=== PATIENT | male | born 1965 | race Two or more races ===

== ENCOUNTER 2019-06-27 08:22 | Observation (INO) | payer OTHER ==
--- NOTE | 2019-06-27 08:37 | PDOC ---
History of Present Illness - General Stated Complaint: Lightheaded Time Seen by Provider: 06/27/19 08:37 - History of Present Illness Initial Comments: 06/27/19 10:38 54 year old man with a history of headaches, HTN, HLD, prior spine surgery who presents with 5 days of vertigo and dizziness. He was evaluated in his PCP 5 days ago. The patient reports that he came to the ED today because he felt nauseous this morning. The headache was slow onset and worse with light. He has no other complaints ROS GENERAL/CONSTITUTIONAL: No fever or chills. No weakness. HEAD, EYES, EARS, NOSE AND THROAT: No change in vision. No ear pain or discharge. CARDIOVASCULAR: No chest pain or shortness of breath RESPIRATORY: No cough, wheezing, or hemoptysis. GASTROINTESTINAL: No nausea, vomiting, diarrhea or constipation. GENITOURINARY: No dysuria, frequency, or change in urination. MUSCULOSKELETAL: No joint or muscle swelling or pain. No neck or back pain. SKIN: No rash NEUROLOGIC: + headache, vertigo, No loss of consciousness, or change in strength /sensation. PE GENERAL: Awake, alert, and fully oriented, in no acute distress HEAD: No signs of trauma, normocephalic, atraumatic EYES: PERRLA, EOMI, sclera anicteric, conjunctiva clear ENT: oropharynx clear without exudates. Moist mucosa NECK: Normal ROM, supple LUNGS: No distress, speaks full sentences, clear to auscultation bilaterally HEART: Regular rate and rhythm, normal S1 and S2, no murmurs, rubs or gallops, peripheral pulses normal and equal bilaterally. ABDOMEN: Soft, nontender No guarding, no rebound. No masses EXTREMITIES : Normal inspection, Normal range of motion, no edema. No clubbing or cyanosis. NEUROLOGICAL: Cranial nerves II through XII grossly intact. Normal speech, no focal sensorimotor deficits SKIN: Warm, Dry, normal turgor, no rashes or lesions noted MDM DDX including but not limited to: migraine bppv vs meiniere vs labrynthitis ED Course: will treat with headache cocktail and reassess patient reassessed and reports resolution of headache but persistent vertigo will dose mecliizine on reassessment patient has improvement of vertigo and headache but difficulty ambulating notable unsteadiness and slighlty wide based gait neurology paged plan for inpatient admission and mri to rule out cerebellar stroke Tressa Peterson, PGY2 Emergency Medicine Past History - Past Medical History Allergies/Adverse Reactions: Allergies Allergy/AdvReac Type Severity Reaction Status Date / Time No Known Allergies Allergy Verified 06/27/19 08:49 Home Medications: Ambulatory Orders Chlorthalidone 12.5 mg PO DAILY 06/27/19 ED Treatment Course - LABORATORY CBC & Chemistry Diagram: 06/28/19 06:07 06/28/19 06:07 Discharge - Discharge Information Problems reviewed: Yes Clinical Impression/Diagnosis: Vertigo Condition: Stable - Admission Yes - Follow up/Referral - Patient Discharge Instructions - Post Discharge Activity
[2019-06-27] MEDS ORDERED: SODIUM CHLORIDE 1,000 ML IV SCH (08:45)
--- NOTE | 2019-06-27 09:07 | PDOC ---
Attending Attestation - Resident Resident Name: Tressa Peterson - HPI HPI: 06/27/19 12:50 Pt presents to the ED complaining of headache and vertigo. THe headache is similar to his typical headache, but the vertigo is not. He has never experienced an episode of vertigo before. He is having difficulty ambulating. - Physicial Exam PE: 06/27/19 12:52 Agree with resident exam. PAtient is alert and oriented and in no acute distress. Lungs are clear. CV: Regular rate and rhythm without murmurs. Abdomen: soft, non tender, non distended without guarding or rebound. Neuro: alert and oriented x 3, CN grossly intact. No nystagmus. - Medical Decision Making 06/27/19 12:53 Pt presents to the ED complaining of vertigo and mild headache. Headache resolved after IV reglan and tylenol, and patient reports feeling less vertigo after meclizine, but remains unable to ambulate. Will admit to medicine and check MRI to rule out posterior CVA.
[2019-06-27 09:29] LABS: BASO % 0.6 % (0-2.0); EOS % 1.1 % (0-4.5); HEMOGLOBIN 17.8 GM/dL (11.7-16.9); MCH 30.4 pg (25.7-33.7); MCHC 34.3 g/dl (32.0-35.9); MEAN CELL VOLUME 88.5 fl (80-96); MEAN PLT VOLUME 8.6 fl (7.5-11.1); MONO % 6.9 % (3.8-10.2); NEUT % 76.4 % (42.8-82.8); PLATELET COUNT 233 K/MM3 (134-434); RBC 5.88 M/mm3 (4.00-5.60); RDW 13.3 % (11.9-15.9); WHITE BLOOD COUNT 9.7 K/mm3 (4.0-10.0)
[2019-06-27 09:30] LABS: URINE APPEARANCE CLEAR; URINE BILIRUBIN NEGATIVE (NEGATIVE); URINE COLOR YELLOW; URINE GLUCOSE (UA) NEGATIVE (NEGATIVE); URINE KETONE NEGATIVE (NEGATIVE); URINE LEUK ESTERASE NEGATIVE (NEGATIVE); URINE NITRITE NEGATIVE (NEGATIVE); URINE PROTEIN NEGATIVE (NEGATIVE); URINE UROBILINOGEN 0.2 mg/dL (0.2-1.0)
[2019-06-27] MEDS ORDERED: METOCLOPRAMIDE HCL INJECTION 10 MG/2 ML VIAL ONE (09:35)
[2019-06-27] MEDS ORDERED: METOCLOPRAMIDE HCL INJECTION 10 MG/2 ML VIAL IVPUSH ONE (09:41)
[2019-06-27] MEDS ORDERED: ACETAMINOPHEN 1000 MG/100 ML VIAL (NON FORMULARY) IVPB ONE (09:41)
[2019-06-27 10:05] LABS: ALBUMIN 3.9 g/dl (3.4-5.0); BILIRUBIN,TOTAL 0.5 mg/dL (0.2-1); BLOOD UREA NITROGEN 19.8 mg/dL (7-18); CALCIUM 8.9 mg/dL (8.5-10.1); POTASSIUM 4.1 mmol/L (3.5-5.1); TOT PROT 7.4 g/dl (6.4-8.2)
[2019-06-27] MEDS ORDERED: ACETAMINOPHEN INJECTION 100 ML IVPB ONE (10:05)
[2019-06-27] MEDS ORDERED: MECLIZINE HCL 25 MG TABLET (FP) PO ONE ×2 (11:19→12:39)
[2019-06-27] MEDS ORDERED: MECLIZINE HCL 25 MG TABLET (FP) ONE ×2 (12:12→13:13)
[2019-06-27] MEDS ORDERED: diazePAM 5 MG TABLET PO ONE (12:39)
[2019-06-27] MEDS ORDERED: diazePAM 5 MG TABLET ONE (13:13)
--- NOTE | 2019-06-27 13:22 | EKG ---
Test Reason : Blood Pressure : / mmHG Vent. Rate : 073 BPM Atrial Rate : 073 BPM P-R Int : 168 ms QRS Dur : 088 ms QT Int : 394 ms P-R-T Axes : 033 034 047 degrees QTc Int : 434 ms POOR DATA QUALITY, INTERPRETATION MAY BE ADVERSELY AFFECTED NORMAL SINUS RHYTHM NORMAL ECG NO PREVIOUS ECGS AVAILABLE Confirmed by MARJORIE GEORGE MD ([id number]) on 06/27/2019 1:21:56 PM Referred By: Confirmed By:MARJORIE GEORGE MD
--- NOTE | 2019-06-27 13:33 | HP ---
<Dharmesh Fernandez - Last Filed: 06/27/19 17:30> CHIEF COMPLAINT: PCP: HISTORY OF PRESENT ILLNESS: 54yo M with h/o HTN who presents today with ~3 days of vertigo and headache. Pt reports he has been on chlorthalidone for at least 3 months without problem. He was in his usual state of health Sunday and during his day sunday pt noticed he developed sudden vertigo that lasted hours. Pt reported his vertiginous symptoms would be exacerbated by movements and alleviated by staying still, however since then he has noticed the correlation being slightly less strict to those factors. Pt today developed a severe bilateral headache and decided to be seen in the ER. Pt reports he took his medication today as directed. Pt received Meclizine and Tylenol during his ER visit and reports slight alleviation of his headache and continued vertigo. Pt denies any trauma, previously have vertigo. Pt denies any hearing loss, fullness of ear, or ear pain. Denies any weakness, numbness, tingling. Pt had not travelled recently or scuba dived. Pt reports he may have had a slight cough 1-2 weeks prior, but is not confident in his timeline. Denies any CP/palpitations, shortness of breath, abdominal pain, back pain. Pt also requests call to his work/work note because he just started and does not want to lose his job. Work number: [employer]. ER course was notable for: (1) (2) (3) Recent Travel: PAST MEDICAL HISTORY: HTN PAST SURGICAL HISTORY: Lumbar spinal fusion about 4 years prior Social History: Smoking: Denies Alcohol: Denies Drugs: Denies Lives with and has 3 kids who are involved in medical field in other countries Allergies No Known Allergies Allergy (Verified 06/27/19 08:49) HOME MEDICATIONS: Home Medications Medication Instructions Recorded Chlorthalidone 12.5 mg PO DAILY 06/27/19 REVIEW OF SYSTEMS As per [facility] PHYSICAL EXAMINATION Vital Signs - 24 hr 06/27/19 06/27/19 06/27/19 08:30 09:20 13:19 Temperature 97.7 F 98 F Pulse Rate 75 Pulse Rate [ 73 77 Right Radial] Respiratory 18 18 18 Rate Blood Pressure 140/102 H Blood Pressure 153/106 H 145/101 H [Left Arm] O2 Sat by Pulse 100 100 100 Oximetry (%) GENERAL: Awake, alert, and fully oriented, in no acute distress. HEENT: NC/AT, EOMI without nystagmus, sclera anicteric, no scleral injections, BELÉN, MMM NECK: [place]-hallpike positive with subjective claims, but no notable nystagmus, no JVD LUNGS: CTA bilaterally. No wheezes, and no crackles. No accessory muscle use. HEART: RRR, normal S1 and S2 without murmur, rub or gallop. ABDOMEN: Soft, nontender, not distended, normoactive bowel sounds, no guarding EXTREMITIES: 2+ pulses, warm, well-perfused. No calf tenderness. No peripheral edema. NEUROLOGICAL: car unloader II-XII intact. Strength 5/5 throughout. sensation intact. no dysmetria, no dysdiadocokinesia, Normal speech. unsteady gait, with hesitation in step. Vertigo persists with eyes closed PSYCHIATRIC: Cooperative. Good eye contact. Appropriate mood and affect. SKIN: Warm, dry, normal turgor, no rashes or lesions noted Laboratory Results - last 24 hr 06/27/19 06/27/19 06/27/19 09:10 09:10 09:10 WBC 9.7 RBC 5.88 H Hgb 17.8 H Hct 52.0 H MCV 88.5 MCH 30.4 MCHC 34.3 RDW 13.3 Plt Count 233 MPV 8.6 Absolute Neuts (auto) 7.4 Neutrophils % 76.4 Lymphocytes % 15.0 Monocytes % 6.9 Eosinophils % 1.1 Basophils % 0.6 Nucleated RBC % 0 Sodium 136 Potassium 4.1 Chloride 102 Carbon Dioxide 26 Anion Gap 8 BUN 19.8 H Creatinine 1.0 Est GFR (CKD-EPI)AfAm 97.77 Est GFR (CKD-EPI)NonAf 84.35 Random Glucose 116 H Calcium 8.9 Total Bilirubin 0.5 AST 32 ALT 77 H Alkaline Phosphatase 103 Troponin I < 0.02 Total Protein 7.4 Albumin 3.9 TSH 0.65 Urine Color Urine Appearance Urine pH Ur Specific [place] Urine Protein Urine Glucose (UA) Urine Ketones Urine Blood Urine Nitrite Urine Bilirubin Urine Urobilinogen Ur Leukocyte Esterase 06/27/19 09:10 WBC RBC Hgb Hct MCV MCH MCHC RDW Plt Count MPV Absolute Neuts (auto) Neutrophils % Lymphocytes % Monocytes % Eosinophils % Basophils % Nucleated RBC % Sodium Potassium Chloride Carbon Dioxide Anion Gap BUN Creatinine Est GFR (CKD-EPI)AfAm Est GFR (CKD-EPI)NonAf Random Glucose Calcium Total Bilirubin AST ALT Alkaline Phosphatase Troponin I Total Protein Albumin TSH Urine Color Yellow Urine Appearance Clear Urine pH 7.0 Ur Specific [place] 1.019 Urine Protein Negative Urine Glucose (UA) Negative Urine Ketones Negative Urine Blood Negative Urine Nitrite Negative Urine Bilirubin Negative Urine Urobilinogen 0.2 Ur Leukocyte Esterase Negative ASSESSMENT/PLAN: New onset Peripheral vertigo Hypertensive Emergency Polycythemia Likely peripheral vertigo compared to central based on history --[place]-hallpike positive --No hearing loss (ruled out labrynthitis vs. [place]) --Longer duration suggestive of neuronitis instead of BPPV, however no preceeding illness --HTN emergency likely causing vertiginous symptoms vs. benign vertiginous pathology --Lopressor 5mg IVP once for HTN emergency relief --Will switch from Chlorthalidone 12.5mg qdaily to Norvasc in case of low normal Na causing his vertigo --Antivert PRN for symptomatic relief in interim --Head CT to r/o any cerebellar pathology --Polycythemia in a nonsmoker with poorly controlled HTN: would suggest sleep study to r/o DERICK which can be done on outpatient basis --Fall risk --Monitor BP and HR FEN: Fluids: not indicated currently Electrolyte abnormalities: None currently; monitor Na Nutrition: Low-sodium diet PPx DVT - SCDs only Dispo: Observation for interval relief of vertigo and ability to walk Dharmesh Fernandez DO - PGY-3 ATTENDING PHYSICIAN STATEMENT I saw and evaluated the patient. I reviewed the resident's note and discussed the case with the resident. I agree with the resident's findings and plan as documented. SUBJECTIVE: OBJECTIVE: ASSESSMENT AND PLAN: <Piter [place]mond - Last Filed: 06/28/19 10:49> Seen and examined; agree with above history and physical as documented aside from as supplemented by myself. Independently verified all gold historical and PE findings as well as lab and imaging findings. Discussed at length with resident. Briefly, he presents for vertiginous symptoms that lead to difficulty ambulating due to dizziness. Thesehappened several days ago and have been waxing and waning. No hx CVA in the past, etc. He has hx HTN. No FND on exam and slightly improved with meclizine but no complete resolution. Given additional dose of meclizine and vallium and bringing to the floor to monitor. No tinnitus, some elements of rotational perception. Did not present as a stroke, persay, but will at least check an MRI to r/o a subacute cerebellar process. I also ordered carotid dopplers to r/o any underlying vertebral A. stenosis or CA stenosis that could contribute to this symptomatology. Neurology has been consulted. Will stay due to the degree of symptoms impacting his functional capacity. 10 sys ROS done and negative aside from HPI PMH, PSH, FH, SH reviewed No FH AVM or sudden CV Medications reviewed, allergies reviewed NAD, AAO, resting in bed Some L-sided nystag. 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 Visit type - Emergency Visit Emergency Visit: Yes ED Registration Date: 06/27/19 Care time: The patient presented to the Emergency Department on the above date and was hospitalized for further evaluation of their emergent condition. - New Patient This patient is new to me today: Yes Date on this admission: 06/27/19 - Critical Care Critical Care patient: No ATTENDING PHYSICIAN STATEMENT I saw and evaluated the patient. I reviewed the resident's note and discussed the case with the resident. I agree with the resident's findings and plan as documented. SUBJECTIVE: OBJECTIVE: ASSESSMENT AND PLAN:
[2019-06-27] MEDS ORDERED: MECLIZINE HCL 12.5 MG TABLET PO PRN (13:34)
[2019-06-27] MEDS ORDERED: METOPROLOL TARTRATE 5 MG/5 ML VIAL IVPUSH ONE (13:34)
[2019-06-27 16:53] VITALS: BMI 28.5
[2019-06-28 06:57] LABS: HEMATOCRIT 52.2 % (35.4-49); HEMOGLOBIN 18.2 GM/dL (11.7-16.9); MCH 30.7 pg (25.7-33.7); MCHC 34.9 g/dl (32.0-35.9); MEAN CELL VOLUME 87.9 fl (80-96); MEAN PLT VOLUME 8.8 fl (7.5-11.1); PLATELET COUNT 246 K/MM3 (134-434); RBC 5.94 M/mm3 (4.00-5.60); RDW 12.9 % (11.9-15.9); WHITE BLOOD COUNT 8.9 K/mm3 (4.0-10.0)
[2019-06-28 08:13] LABS: BLOOD UREA NITROGEN 22.5 mg/dL (7-18); CALCIUM 9.2 mg/dL (8.5-10.1); MAGNESIUM 2.4 mg/dL (1.8-2.4); POTASSIUM 3.6 mmol/L (3.5-5.1)
--- NOTE | 2019-06-28 08:47 | PN ---
Physical Exam: SUBJECTIVE: Patient seen and examined He is better and less dizziness his ct head is normal today and awaiting neuro consult OBJECTIVE: Vital Signs Period Temp Pulse Resp BP Sys/[place]umbo Pulse Ox Last 24 Hr 97.9 F-98.6 F 70-85 17-18 118-153/75-106 98-100 GENERAL: The patient is awake, alert, and fully oriented, in no acute distress. HEAD: Normal with no signs of trauma. EYES: PERRL, extraocular movements intact, sclera anicteric, conjunctiva clear. No ptosis. ENT: Ears normal, nares patent, oropharynx clear without exudates, moist mucous membranes. NECK: Trachea midline, full range of motion, supple. LUNGS: Breath sounds equal, clear to auscultation bilaterally, no wheezes, no crackles, no accessory muscle use. HEART: Regular rate and rhythm, S1, S2 without murmur, rub or gallop. ABDOMEN: Soft, nontender, nondistended, normoactive bowel sounds, no guarding, no rebound, no hepatosplenomegaly, no masses. EXTREMITIES: 2+ pulses, warm, well-perfused, no edema. NEUROLOGICAL: Cranial nerves II through XII grossly intact. Normal speech, gait not observed. PSYCH: Normal mood, normal affect. SKIN: Warm, dry, normal turgor, no rashes or lesions noted Laboratory Results - last 24 hr 06/27/19 06/27/19 06/27/19 09:10 09:10 09:10 WBC 9.7 RBC 5.88 H Hgb 17.8 H Hct 52.0 H MCV 88.5 MCH 30.4 MCHC 34.3 RDW 13.3 Plt Count 233 MPV 8.6 Absolute Neuts (auto) 7.4 Neutrophils % 76.4 Lymphocytes % 15.0 Monocytes % 6.9 Eosinophils % 1.1 Basophils % 0.6 Nucleated RBC % 0 Sodium 136 Potassium 4.1 Chloride 102 Carbon Dioxide 26 Anion Gap 8 BUN 19.8 H Creatinine 1.0 Est GFR (CKD-EPI)AfAm 97.77 Est GFR (CKD-EPI)NonAf 84.35 Random Glucose 116 H Calcium 8.9 Magnesium Total Bilirubin 0.5 AST 32 ALT 77 H Alkaline Phosphatase 103 Troponin I < 0.02 Total Protein 7.4 Albumin 3.9 TSH 0.65 Urine Color Urine Appearance Urine pH Ur Specific [place] Urine Protein Urine Glucose (UA) Urine Ketones Urine Blood Urine Nitrite Urine Bilirubin Urine Urobilinogen Ur Leukocyte Esterase 06/27/19 06/28/19 06/28/19 09:10 06:07 06:07 WBC 8.9 RBC 5.94 H Hgb 18.2 H Hct 52.2 H MCV 87.9 MCH 30.7 MCHC 34.9 RDW 12.9 Plt Count 246 MPV 8.8 Absolute Neuts (auto) Neutrophils % Lymphocytes % Monocytes % Eosinophils % Basophils % Nucleated RBC % Sodium 138 Potassium 3.6 Chloride 100 Carbon Dioxide 27 Anion Gap 11 BUN 22.5 H Creatinine 1.0 Est GFR (CKD-EPI)AfAm 97.77 Est GFR (CKD-EPI)NonAf 84.35 Random Glucose 103 Calcium 9.2 Magnesium 2.4 Total Bilirubin AST ALT Alkaline Phosphatase Troponin I Total Protein Albumin TSH Urine Color Yellow Urine Appearance Clear Urine pH 7.0 Ur Specific [place] 1.019 Urine Protein Negative Urine Glucose (UA) Negative Urine Ketones Negative Urine Blood Negative Urine Nitrite Negative Urine Bilirubin Negative Urine Urobilinogen 0.2 Ur Leukocyte Esterase Negative Active Medications Generic Name Dose Route Start Last Admin Trade Name Freq PRN Reason Stop Dose Admin Amlodipine Besylate 10 mg 06/28/19 14:30 Norvasc - PO DAILY QUIN Meclizine HCl 12.5 mg 06/27/19 13:34 Antivert - PO Q6HPO PRN VERTIGO ASSESSMENT/PLAN: dizziness r/o cause probably due to peripheral vertigo H/o high hemoglobin and according to him he has h/o blood draw for polycythemia called hematology eval and repeat labs neuro moise is pending htn stable advised to continue the amlodipine Visit type - Emergency Visit Emergency Visit: Yes ED Registration Date: 06/27/19 Care time: The patient presented to the Emergency Department on the above date and was hospitalized for further evaluation of their emergent condition. - New Patient This patient is new to me today: Yes Date on this admission: 06/28/19 - Critical Care Critical Care patient: No - Discharge Referral Referred to [facility] Med P.C.: No
[2019-06-28] MEDS ORDERED: CHLORTHALIDONE 25 MG TABLET PO SCH (10:00)
[2019-06-28] MEDS ORDERED: amLODIPine BESYLATE 10 MG TABLET (FP) PO SCH (10:00)
[2019-06-28] MEDS ORDERED: MECLIZINE HCL 25 MG TABLET (FP) PO PRN (10:36)
[2019-06-28] MEDS ORDERED: PT OWN MED DRAWER 7, Y5N ONE (10:40)
--- NOTE | 2019-06-28 10:48 | CONSULT ---
Consult Consult Specialty:: Hematology Referred by:: Medicine Reason for Consultation:: Erythrocytosis - History of Present Illness Chief Complaint: Vertigo History of Present Illness: Several days vertigo, and headache, and found to have elevated Hct >50%. Non contrast CT negative. Concern for P vera. Patient informs me he used to undergo phlebotomy in his home country. Unaware of a diagnosis. No history of thromboembolic events. - History Source History Provided By: Patient, Medical Record Limitations to Obtaining History: No Limitations - Alcohol/Substance Use Hx Alcohol Use: No - Smoking History Smoking history: Never smoked Have you smoked in the past 12 months: No Home Medications - Allergies Allergies/Adverse Reactions: Allergies Allergy/AdvReac Type Severity Reaction Status Date / Time No Known Allergies Allergy Verified 06/27/19 08:49 - Home Medications Home Medications: Ambulatory Orders Amlodipine Besylate [Norvasc -] 10 mg PO DAILY #30 tablet 06/29/19 Chlorthalidone 12.5 mg PO DAILY #30 tablet 06/29/19 Meclizine HCl 12.5 mg PO TID PRN 30 Days #30 tablet 06/29/19 Physical Exam Vital Signs: Vital Signs Temperature 98.0 F 06/28/19 06:00 Pulse Rate 85 06/28/19 06:00 Respiratory Rate 18 06/28/19 06:00 Blood Pressure 124/82 06/28/19 06:00 O2 Sat by Pulse Oximetry (%) 98 06/28/19 05:00 Constitutional: Yes: Well Nourished Eyes: Yes: WNL Neck: Yes: Supple, Trachea Midline Cardiovascular: Yes: Regular Rate and Rhythm, S1, S2. No: Gallop, Murmur Respiratory: Yes: Regular, CTA Bilaterally Gastrointestinal: Yes: Normal Bowel Sounds, Soft. No: Splenomegaly Musculoskeletal: No: Joint Swelling Extremities: Yes: WNL Edema: No Neurological: Yes: Alert, Oriented, Cran Nerves II-XII Intact. No: Loss of Sensation, Numbness, Pre-Existing Deficit ...Motor Strength: WNL Psychiatric: Yes: Alert, Oriented Labs: CBC, BMP 06/28/19 06:07 06/28/19 06:07 Assessment/Plan Mild erythrocytosis, without apparent etiology. Unclear why he underwent phlebotomy in the past, but raises concern of a possible confirmed history of P vera. Check epo level and screen for JAK2 [id number] mutation. In interim can start ASA 81mgs/day. If patient to be discharged should follow up with Kathleen Deng/Brianna as outpatient.
--- NOTE | 2019-06-28 11:59 | CONSULT ---
Consult - text type - Consultation Consultation Note: Neurology HISTORY OF PRESENT ILLNESS: 54yo M with h/o HTN who presented on day of admission with ~3 days of vertigo and headache. Pt reported he has been on chlorthalidone for at least 3 months without problem. He was in his usual state of health Sunday and on Sunday, pt noticed he developed sudden vertigo that lasted hours. Pt reported his vertiginous symptoms would be exacerbated by movements and alleviated by staying still, however since then he has noticed the correlation being slightly less strict to those factors. Pt on day of admission, developed a severe bilateral headache and decided to be seen in the ER. Pt reports he took his medication on day admission as directed. Pt received Meclizine and Tylenol during his ER visit and reports slight alleviation of his headache and continued vertigo. Pt denies any trauma, previously have vertigo. Pt denies any hearing loss, fullness of ear, or ear pain. Denies any weakness, numbness, tingling. Pt had not travelled recently or scuba dived. Pt reports he may have had a slight cough 1-2 weeks prior, but is not confident in his timeline. Denies any CP/palpitations, shortness of breath, abdominal pain, back pain. Head CT completed, no evidence of acute pathology. Brain MRI ordered, carotid doppler ordered. Patient reports dizzynes is better and less vertiginous at this time. Has not attempted ambulation and advised to do so carefully. Recent Travel: PAST MEDICAL HISTORY: HTN PAST SURGICAL HISTORY: Lumbar spinal fusion about 4 years prior Social History: Smoking: Denies Alcohol: Denies Drugs: Denies Lives with and has 3 kids who are involved in medical field in other countries Family: HTN Allergies No Known Allergies Allergy (Verified 06/27/19 08:49) HOME MEDICATIONS: Home Medications Medication Instructions Recorded Chlorthalidone 12.5 mg PO DAILY 06/27/19 REVIEW OF SYSTEMS As per [facility] PHYSICAL EXAMINATION Vital Signs Period Temp Pulse Resp BP Sys/Palumbo Pulse Ox Last 24 Hr 97.9 F-98.6 F 70-85 17-18 118-148/75-101 98-100 GENERAL: Awake, alert, and fully oriented, in no acute distress. HEENT: NC/AT, EOMI without nystagmus, sclera anicteric, no scleral injections, BELÉN, MMM NECK: Jovon-hallpike positive with subjective claims, but no notable nystagmus, no JVD LUNGS: CTA bilaterally. No wheezes, and no crackles. No accessory muscle use. HEART: RRR, normal S1 and S2 without murmur, rub or gallop. ABDOMEN: Soft, nontender, not distended, normoactive bowel sounds, no guarding EXTREMITIES: 2+ pulses, warm, well-perfused. No calf tenderness. No peripheral edema. NEUROLOGICAL: inspector outside steam distribution II-XII intact. Strength 5/5 throughout. sensation intact. no dysmetria, no dysdiadocokinesia, Normal speech. unsteady gait, with hesitation in step. Vertigo persists with eyes closed PSYCHIATRIC: Cooperative. Good eye contact. Appropriate mood and affect. SKIN: Warm, dry, normal turgor, no rashes or lesions noted CBCD WBC 8.9 K/mm3 (4.0-10.0) 06/28/19 06:07 RBC 5.94 M/mm3 (4.00-5.60) H 06/28/19 06:07 Hgb 18.2 GM/dL (11.7-16.9) H 06/28/19 06:07 Hct 52.2 % (35.4-49) H 06/28/19 06:07 MCV 87.9 fl (80-96) 06/28/19 06:07 MCHC 34.9 g/dl (32.0-35.9) 06/28/19 06:07 RDW 12.9 % (11.9-15.9) 06/28/19 06:07 Plt Count 246 K/MM3 (134-434) 06/28/19 06:07 MPV 8.8 fl (7.5-11.1) 06/28/19 06:07 CMP Sodium 138 mmol/L (136-145) 06/28/19 06:07 Potassium 3.6 mmol/L (3.5-5.1) 06/28/19 06:07 Chloride 100 mmol/L (98-107) 06/28/19 06:07 Carbon Dioxide 27 mmol/L (21-32) 06/28/19 06:07 Anion Gap 11 MMOL/L (8-16) 06/28/19 06:07 BUN 22.5 mg/dL (7-18) H 06/28/19 06:07 Creatinine 1.0 mg/dL (0.55-1.3) 06/28/19 06:07 Random Glucose 103 mg/dL (74-106) 06/28/19 06:07 Calcium 9.2 mg/dL (8.5-10.1) 06/28/19 06:07 Total Bilirubin 0.5 mg/dL (0.2-1) 06/27/19 09:10 AST 32 U/L (15-37) 06/27/19 09:10 ALT 77 U/L (13-61) H 06/27/19 09:10 Alkaline Phosphatase 103 U/L (45-117) 06/27/19 09:10 Total Protein 7.4 g/dl (6.4-8.2) 06/27/19 09:10 Albumin 3.9 g/dl (3.4-5.0) 06/27/19 09:10 CARDIAC ENZYMES Troponin I < 0.02 ng/ml (0.00-0.05) 06/27/19 09:10 ASSESSMENT/PLAN: 54yo M with h/o HTN who presented on day of admission with ~3 days of vertigo and headache. Pt reported he has been on chlorthalidone for at least 3 months without problem. He was in his usual state of health Sunday and on Sunday, pt noticed he developed sudden vertigo that lasted hours. Pt reported his vertiginous symptoms would be exacerbated by movements and alleviated by staying still, however since then he has noticed the correlation being slightly less strict to those factors. Pt on day of admission, developed a severe bilateral headache and decided to be seen in the ER. Pt reports he took his medication on day admission as directed. Pt received Meclizine and Tylenol during his ER visit and reports slight alleviation of his headache and continued vertigo. Pt denies any trauma, previously have vertigo. Pt denies any hearing loss, fullness of ear, or ear pain. Denies any weakness, numbness, tingling. Pt had not travelled recently or scuba dived. Pt reports he may have had a slight cough 1-2 weeks prior, but is not confident in his timeline. Denies any CP/palpitations, shortness of breath, abdominal pain, back pain. Head CT completed, no evidence of acute pathology. Brain MRI ordered, carotid doppler ordered. Patient reports dizzynes is better and less vertiginous at this time. Has not attempted ambulation and advised to do so carefully. Maintain adequate hydration, avoid sudden head movements. Meclezine PRN. Follow up imaging and doppler studies. Maintain normotensive range as bp fluctuations can precipitate symptoms.
[2019-06-28 13:56] LABS: IRON SERUM 79 ug/dL (50-175); TOTAL IRON BINDING CAPACITY 344 ug/dL (250-450)
--- NOTE | 2019-06-28 14:44 | EKG ---
Test Reason : Blood Pressure : / mmHG Vent. Rate : 080 BPM Atrial Rate : 080 BPM P-R Int : 172 ms QRS Dur : 100 ms QT Int : 378 ms P-R-T Axes : 070 034 044 degrees QTc Int : 435 ms NORMAL SINUS RHYTHM NORMAL ECG WHEN COMPARED WITH ECG OF 27-JUN-2019 08:49, NO SIGNIFICANT CHANGE WAS FOUND Confirmed by SARITHA FITZPATRICK MD ([id number]) on 06/28/2019 2:44:33 PM Referred By: Shelbie CARUSO Confirmed By:SARITHA FITZPATRICK MD
[2019-06-28] MEDS: amLODIPine BESYLATE 10 MG TABLET (FP) PO SCH (15:59)
[2019-06-28 19:10] VITALS: TEMP 98.2
--- NOTE | 2019-06-29 10:05 | DS ---
Physical Exam: SUBJECTIVE: Patient seen and examined This patient was admitted to hospital for dizziness and he improved after he took meclizine OBJECTIVE: Vital Signs Period Temp Pulse Resp BP Sys/Palumbo Pulse Ox Last 24 Hr 98.2 F-98.8 F 84-89 18-20 124-166/75-94 97-98 PHYSICAL EXAM GENERAL: The patient is awake, alert, and fully oriented, in no acute distress. HEAD: Normal with no signs of trauma. EYES: PERRL, extraocular movements intact, sclera anicteric, conjunctiva clear. ENT: Ears normal, nares patent, oropharynx clear without exudates, moist mucous membranes. NECK: Trachea midline, full range of motion, supple. LUNGS: Breath sounds equal, clear to auscultation bilaterally, no wheezes, no crackles, no accessory muscle use. HEART: Regular rate and rhythm, S1, S2 without murmur, rub or gallop. ABDOMEN: Soft, nontender, nondistended, normoactive bowel sounds, no guarding, no rebound, no hepatosplenomegaly, no masses. EXTREMITIES: 2+ pulses, warm, well-perfused, no edema. NEUROLOGICAL: Cranial nerves II through XII grossly intact. Normal speech, gait not observed. PSYCH: Normal mood, normal affect. SKIN: Warm, dry, normal turgor, no rashes or lesions noted. LABS Laboratory Results - last 24 hr 06/28/19 06/28/19 12:42 12:42 Retic Count 2.74 H Iron 79 TIBC 344 Iron Saturation 22 Unsaturated IBC 265 Vitamin B12 718 Serum Folate 15 HOSPITAL COURSE: Date of Admission:06/27/19 Date of Discharge: 06/29/19 He was admitted and had ct head , normal , carotid normal and Mri of brain ordered and will f/u in out patient bases, He also had high hemoglobin and called hematology consult and advised to do Luis 2 mutations test but it may take one week to get the result. discussed with patient about f/u in office with pmd and will get w/u done, He also give phone number of tip tester dr Deng for f/u He is going home on meclizine and hctz for his high bp He had neuro and hematology consult in hospital. Current Medications Amlodipine Besylate (Norvasc -) 10 mg PO DAILY QUIN Last Admin: 06/28/19 15:59 Dose: 10 mg Meclizine HCl (Antivert -) 25 mg PO Q6HPO PRN PRN Reason: VERTIGO Minutes to complete discharge: 30 Discharge Summary Problems reviewed: Yes Reason For Visit: ATAXIA , VERTIGO Current Active Problems Vertigo (Acute) Condition: Improved - Instructions Diet, Activity, Other Instructions: He has full activity Referrals: Noemi Dumont [Primary Care Provider] - Shoshana Fuentes MD [Staff Physician] - Disposition: HOME - Home Medications Comprehensive Discharge Medication List: Ambulatory Orders Chlorthalidone 12.5 mg PO DAILY #30 tablet 06/29/19 Meclizine HCl 12.5 mg PO TID PRN 30 Days #30 tablet 06/29/19 This patient is new to me today: Yes Date on this admission: 06/29/19 Emergency Visit: Yes ED Registration Date: 06/27/19 Care time: The patient presented to the Emergency Department on the above date and was hospitalized for further evaluation of their emergent condition. Critical Care patient: No - Discharge Referral Referred to [facility] Med [facility].: No
[2019-06-29] MEDS: amLODIPine BESYLATE 10 MG TABLET (FP) PO SCH (10:50)
[2019-06-29 10:51] VITALS: BP 132/93; PULSE 97
--- NOTE | 2019-06-29 12:24 | PN ---
Progress Note (short form) - Note Progress Note: Neurology HISTORY OF PRESENT ILLNESS: 54yo M with h/o HTN who presented on day of admission with ~3 days of vertigo and headache. Pt reported he has been on chlorthalidone for at least 3 months without problem. He was in his usual state of health Sunday and on Sunday, pt noticed he developed sudden vertigo that lasted hours. Pt reported his vertiginous symptoms would be exacerbated by movements and alleviated by staying still, however since then he has noticed the correlation being slightly less strict to those factors. Pt on day of admission, developed a severe bilateral headache and decided to be seen in the ER. Pt reports he took his medication on day admission as directed. Pt received Meclizine and Tylenol during his ER visit and reports slight alleviation of his headache and continued vertigo. Pt denies any trauma, previously have vertigo. Pt denies any hearing loss, fullness of ear, or ear pain. Denies any weakness, numbness, tingling. Pt had not travelled recently or scuba dived. Pt reports he may have had a slight cough 1-2 weeks prior, but is not confident in his timeline. Denies any CP/palpitations, shortness of breath, abdominal pain, back pain. Head CT completed, no evidence of acute pathology. Brain MRI compelted and reviewed, no acute chanegs and no cva. carotid doppler reviewd and discussed, no HD significant stenosis. Discussed with patient and family at bedside. Patient reports dizzynes is better and less vertiginous at this time. ADvised outpatient followup. Neurologically stable at this time. Home Medications Medication Instructions Recorded Amlodipine Besylate [Norvasc -] 10 mg PO DAILY #30 tablet 06/29/19 Chlorthalidone 12.5 mg PO DAILY #30 tablet 06/29/19 Meclizine HCl 12.5 mg PO TID PRN 30 Days #30 06/29/19 tablet PHYSICAL EXAMINATION Vital Signs Period Temp Pulse Resp BP Sys/Palumbo Pulse Ox Last 24 Hr 98.2 F-98.8 F 85-97 18-20 124-166/75-93 97-98 GENERAL: Awake, alert, and fully oriented, in no acute distress. HEENT: NC/AT, EOMI without nystagmus, sclera anicteric, no scleral injections, BELÉN, MMM NECK: Jovon-hallpike positive with subjective claims, but no notable nystagmus, no JVD LUNGS: CTA bilaterally. No wheezes, and no crackles. No accessory muscle use. HEART: RRR, normal S1 and S2 without murmur, rub or gallop. ABDOMEN: Soft, nontender, not distended, normoactive bowel sounds, no guarding EXTREMITIES: 2+ pulses, warm, well-perfused. No calf tenderness. No peripheral edema. NEUROLOGICAL: fitter up II-XII intact. Strength 5/5 throughout. sensation intact. no dysmetria, no dysdiadocokinesia, Normal speech. unsteady gait, with hesitation in step. Vertigo persists with eyes closed PSYCHIATRIC: Cooperative. Good eye contact. Appropriate mood and affect. SKIN: Warm, dry, normal turgor, no rashes or lesions noted CBCD WBC 8.9 K/mm3 (4.0-10.0) 06/28/19 06:07 RBC 5.94 M/mm3 (4.00-5.60) H 06/28/19 06:07 Hgb 18.2 GM/dL (11.7-16.9) H 06/28/19 06:07 Hct 52.2 % (35.4-49) H 06/28/19 06:07 MCV 87.9 fl (80-96) 06/28/19 06:07 MCHC 34.9 g/dl (32.0-35.9) 06/28/19 06:07 RDW 12.9 % (11.9-15.9) 06/28/19 06:07 Plt Count 246 K/MM3 (134-434) 06/28/19 06:07 MPV 8.8 fl (7.5-11.1) 06/28/19 06:07 CMP Sodium 138 mmol/L (136-145) 06/28/19 06:07 Potassium 3.6 mmol/L (3.5-5.1) 06/28/19 06:07 Chloride 100 mmol/L (98-107) 06/28/19 06:07 Carbon Dioxide 27 mmol/L (21-32) 06/28/19 06:07 Anion Gap 11 MMOL/L (8-16) 06/28/19 06:07 BUN 22.5 mg/dL (7-18) H 06/28/19 06:07 Creatinine 1.0 mg/dL (0.55-1.3) 06/28/19 06:07 Calcium 9.2 mg/dL (8.5-10.1) 06/28/19 06:07 Total Bilirubin 0.5 mg/dL (0.2-1) 06/27/19 09:10 AST 32 U/L (15-37) 06/27/19 09:10 ALT 77 U/L (13-61) H 06/27/19 09:10 Alkaline Phosphatase 103 U/L (45-117) 06/27/19 09:10 Total Protein 7.4 g/dl (6.4-8.2) 06/27/19 09:10 Albumin 3.9 g/dl (3.4-5.0) 06/27/19 09:10 ASSESSMENT/PLAN: 54yo M with h/o HTN who presented on day of admission with ~3 days of vertigo and headache. Pt reported he has been on chlorthalidone for at least 3 months without problem. He was in his usual state of health Sunday and on Sunday, pt noticed he developed sudden vertigo that lasted hours. Pt reported his vertiginous symptoms would be exacerbated by movements and alleviated by staying still, however since then he has noticed the correlation being slightly less strict to those factors. Pt on day of admission, developed a severe bilateral headache and decided to be seen in the ER. Pt reports he took his medication on day admission as directed. Pt received Meclizine and Tylenol during his ER visit and reports slight alleviation of his headache and continued vertigo. Pt denies any trauma, previously have vertigo. Pt denies any hearing loss, fullness of ear, or ear pain. Denies any weakness, numbness, tingling. Pt had not travelled recently or scuba dived. Pt reports he may have had a slight cough 1-2 weeks prior, but is not confident in his timeline. Denies any CP/palpitations, shortness of breath, abdominal pain, back pain. Head CT completed, no evidence of acute pathology. Brain MRI compelted and reviewed, no acute chanegs and no cva. carotid doppler reviewd and discussed, no HD significant stenosis. Discussed with patient and family at bedside. Patient reports dizzynes is better and less vertiginous at this time. ADvised outpatient followup. Neurologically stable at this time. Maintain adequate hydration, avoid sudden head movements. Meclezine PRN.
== END 2019-06-29 12:03 | disposition home or self-care (01) ==
LOC: JER 08:22 → JERBED 12:29 → INTOOBSV 12:29 → J5S 13:57
PROVIDERS: ADMIT Internal Medicine; ATTEND Internal Medicine
PROC: 3E033NZ Introduction of Analgesics, Hypnotics, Sedatives into Peripheral Vein, Percutaneous Approach (ICD-10-PCS; principal; 2019-06-27)
PROC: 3E0337Z Introduction of Electrolytic and Water Balance Substance into Peripheral Vein, Percutaneous Approach (ICD-10-PCS; 2019-06-27)
PROC: 3E033GC Introduction of Other Therapeutic Substance into Peripheral Vein, Percutaneous Approach (ICD-10-PCS; 2019-06-27)
DX: R42 Dizziness and giddiness (principal); I16.1 Hypertensive emergency; D75.1 Secondary polycythemia; Z98.1 Arthrodesis status
CPT/HCPCS: 36415; 70450-TC; 70551-TC; 80048; 80053; 81003; 82607; 82668; 82746; 83540; 83550; 83735; 84443; 84484; 85025; 85027; 85044; 87086; 93005; 93010; 93880-TC; 96374; 96375; 99284-25; G0378; J0131; J7030

== ENCOUNTER 2020-12-16 04:24 | Day surgery (SDC) | payer OTHER ==
[2020-12-15 14:32] VITALS: BMI 30.7
[2020-12-16 10:00] VITALS: PULSE 90
[2020-12-16] MEDS ORDERED: ceFAZolin 2 GRAM PREMIX BAG IVPB ONE (12:20)
[2020-12-16] MEDS ORDERED: ceFAZolin SODIUM 1 GM VIAL IVPB ONE (12:20)
[2020-12-16] MEDS ORDERED: LIDOCAINE HCL 1%, 10 MG/ML (20ML VIAL) INF ONE (12:25)
[2020-12-16] MEDS ORDERED: LIDOCAINE HCL 1%, 10 MG/ML (20ML VIAL) ONE (13:15)
[2020-12-16] MEDS ORDERED: ONDANSETRON 4 MG/2 ML VIAL IVPUSH PRN (14:50)
[2020-12-16] MEDS ORDERED: oxyCODONE HCL 5 MG TABLET PO PRN ×2 (14:50)
[2020-12-16] MEDS ORDERED: ACETAMINOPHEN 325 MG TABLET (FP) PO PRN (14:50)
[2020-12-16] MEDS ORDERED: LACTATED RINGERS SOLUTION 1,000 ML IV SCH (15:00)
[2020-12-16 17:01] VITALS: BP 119/90; TEMP 97.8
== END 2020-12-16 16:30 | disposition home or self-care (01) ==
LOC: JASU-SURG 04:24
PROVIDERS: ATTEND Physical Medicine & Rehabilitation
PROC: 4B01XVZ Measurement of Peripheral Nervous Stimulator, External Approach (ICD-10-PCS; 2020-12-16)
PROC: 00HU3MZ Insertion of Neurostimulator Lead into Spinal Canal, Percutaneous Approach (ICD-10-PCS; principal; 2020-12-16 11:00)
DX: M96.1 Postlaminectomy syndrome, not elsewhere classified (principal); M54.16 Radiculopathy, lumbar region; M48.061 Spinal stenosis, lumbar region without neurogenic claudication
CPT/HCPCS: 63650; C1897; 76000-TC-FY